=== PATIENT | male | born 1945 | race Caucasian/White ===

== ENCOUNTER 2025-03-24 18:22 | Emergency (ER) | payer MEDICARE, BC, SELFPAY ==
--- OUTSIDE RECORDS SUMMARY | 2025-01-15 09:30 | XMS_ITS ---
Author Organization [facility] in [place] Address [address] [place] [address] Care Team Providers Care Lime Slaker Name Role Phone Shravan Pavon MD Primary Care Provider Unavail able Bob Sajan Unavailable [phone] Results Component Value Reference Range Notes UA (URINALYSIS, COMPLETE) (N ot yet reviewed by provider) Interpretation: Performing Lab: Notes/Report: PSA, TOTAL (Not yet reviewed by provider) Interpretation: Performing Lab: Notes/Report: CYTOLOGY, URINE, RANDOM Reviewed date:02/05/2025 04:05:49 PM Interpretation: Performing Lab: Notes/Report: REASON FOR VISIT Ref Librado--hematuria ([facility]) Medications Medication SIG (Take, Route, Frequency, Duration) Notes Start Date End Date Status Metoprolol Succinate ER 50 MG Oral for 90 Days Active Xarelto 20 MG Oral for 90 Days Active Rosuvastatin Calcium 10 MG Oral for 90 Days Active Multaq 400 MG TAKE 1 TABLET BY GAVI TH TWICE DAILY Oral for 90 Days Active Multaq 400 MG Oral for 90 Days Not-Taking Januvia 100 MG TAKE 1 TABLET BY GAVI TH ONCE DAILY Oral for 90 Days Active Citalopram Hydrobromide 10 MG Oral for 90 Days Active Aspirin 81 Active Social History Tobacco Use: Social History Observation Description Date Details (start date - stop date) Never Smoker NA - NA Tobacco Control (Standard) Question Answer Notes Tobacco use: Nonsmoker AUDIT-C (Standard) Question Answer Notes Did you have a drink containing alcohol in the p ast year? 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 Plan Of Treatment Treatment Notes Assessment Notes Other Check UA micro and cytology Check PSA. Pending Test Test Name Order Date UA (URINALYSIS, COMPLETE) 01/15/2025 PSA, TOTAL 01/15/2025 Next Appt Details Follow Up: 6 Weeks, Reason: PSA and cytology and UA Progress Notes * Juan PINEDADOB: [birth year] (79 yo M)Acc No.[id number]:01/15/2025 Progress Note Patient: Juan RODARTE Provider: Armando Rojas MD :1945 A ge:79 Y S ex:Male Date:01/15/2025 Address:[address] [place], [place] [address] Pcp:Shravan Pavon MD Check In:01:13 PM ESTCheck O ut:02:31 PM EST Subjective: * Chief Complaints: * Ab Pavon--hematuria ([facility]) * HPI: U rology: We see Raad for blood in underwear. CT showed 2mm left kidney stones. Hematuria, Microscopic D id you see blood in your urine? . * ROS: G eneral/Constitutional: Fever d enies. W eight loss d enies. F atigue or Weakness d enies. G enitourinary: Incontinence d enies. F requent urination a dmits. P ainful urination d enies. B lood in Urine d enies. * Active Problem List N20.0 Kidney stone Modified On:01/15/2025W/U Status:confirmed N40.0 BPH (benign prostati c hyperplasia) Modified On:01/15/2025/U Status:confirmed * Medical History: * Surgical History: s kin cancer circumcision * Hospitalization/Major Diagno stic Procedure: * Family History: N o Family History documented.. * Social History: T obacco Use: T obacco Control (Standard) T obacco use: N onsmoker D rug/Alcohol: A DEL-C (Standard) D id you have a drink containing alcohol in the past year? N o P oints 0 I nterpretation N egative D rugs/Alcohol: C affeine I ntake: 1 -2 cups per day * Medications: T akingAspirin 81 Citalopram Hydrobromide 10 MG Tablet Oral Januvia(SITagliptin Phosphate) 100 MG Tablet TAKE 1 TABLET BY MOUTH ONCE DAILY Oral Metoprolol Succinate ER 50 MG Tablet Extended Release 24 Hour Oral Multaq(Dronedarone HCl) 400 MG Tablet TAKE 1 TABLET BY MOUTH TWICE DAILY Oral Rosuvastatin Calcium 10 MG Tablet Oral Xarelto(Rivaroxaban) 20 MG Tablet Oral Taking Aspirin 81 Taking Citalopram Hydrobromide 10 MG Tablet Oral Taking Januvia(SITagliptin Phosphate) 100 MG Tablet TAKE 1 TABLET BY MOUTH ONCE DAILY Oral Taking Metoprolol Succinate ER 50 MG Tablet Extended Release 24 Hour Oral Taking Multaq(Dronedarone HCl) 400 MG Tablet TAKE 1 TABLET BY MOUTH TWICE DAILY Oral Taking Rosuvastatin Calcium 10 MG Tablet Oral Taking Xarelto(Rivaroxaban) 20 MG Tablet Oral Not-Taking/PRNMultaq(Dronedarone HCl) 400 MG Tablet Oral Medication List reviewed and reconciled with the patientNot- Taking/PRN Multaq(Dronedarone HCl) 400 MG Tablet Oral Medication List reviewed and reconciled with the patient * Allergies: n o[Allergies Verified] Objective: * Vitals: W t:208.6lbs, Ht: 72 in, BMI:28.29Index, Ht-cm: 182.88 cm, Wt-k.62 kg. Assessment: * Assessment: 1. B enign essential microscopic hematuria - R31.1 (Primary) 2 . K idney stone - N20.0 3 . B PH (benign prostatic hyperplasia) - N40.0 Plan: * Treatment: 2. B PH (benign prostatic hyperplasia) L AB: PSA, TOTAL (Collection Date & Time - 01/16/2025) 3. O thers Notes: Check UA micro and cytology Check PSA. * Procedure Codes: * Follow Up: 6 Weeks (Reason: PSA and cytology and UA) * * Sign off status: Completed Visit Status: C HK (Check Out) true * Provider: Armando Rojas MD Date: 0 01/15/2025 Generated for Paulina bowman/Rossana/Lisaitting on: 0 03/24/2025 06:40 PM EDT History and Physical Notes * HPI (History of Present Illness) Category Sub-Category Detail Notes Category Not es Urology Hematuria, Microscopic Did you s ee blood in your urine?: .
--- OUTSIDE RECORDS SUMMARY | 2025-03-12 07:20 | XMS_ITS ---
Author Organization [facility] in [place] Address [address] [place] [address] Care Team Providers Care Mounter Clarinets Name Role Phone Librado JOSHUA, Shravan Primary Care Provider Unavail able Sajan Rojas Unavailable [phone] REASON FOR VISIT w/ ua, cytology, psa Encounters Encounter Location Date Provider Diagnosis Urology [facility] [address] [address] 03/12/2025 Sajan Rojas Plan Of Treatment No Information Progress Notes * Juan PINEDADOB: [birth year] (79 yo M)Acc No.[id number]:03/12/2025 UNLOCKED PROGRESS NOTE Patient: Juan RODARTE Provider: Armando Rojas MD :1945 A ge:79 Y S ex:Male Date:03/12/2025 Address:[address] [place] [phone] Pcp:Shravan Pavon MD Subjective: * Chief Complaints: * 1 . W/ ua, cytology, psa. * Medical History: Objective: * Vitals: Assessment: Plan: * Treatment: * * Electronic signature of Kole Rojas MD, [id number] on 03/24/2025 at 06:41 PM EDT Sign off status: Pending Visit Status: C ANC (Cancelled) * Provider: Armando Rojas MD Date: 0 03/12/2025 Generated for Paulina bowman/Rossana/Armand on: 0 03/24/2025 06:41 PM EDT
--- OUTSIDE RECORDS SUMMARY | 2025-03-12 23:59 | XMS_ITS | Continuity of Care Document ---
Author Organization [facility] Address [address] [place] [address]- Encounter 03/12/25 - 03/12/25 [facility] [address] [place] [address] [address] [place] [address]- Encounter Diagnosis Kidney stone(Discharge Diagnosis) - 03/12/25 Hematuria, gross(Discharge Diagnosis) - 03/12/25 Flank pain(Discharge Diagnosis) - 03/12/25 Discharge Disposition: Home Attending Physician: Sajan Rojas MD Encounter Type: Outpatient Clinic Assessment and Plan Extracted from: Title:Office Visit Note Author:Sajan Rojas Date:03/12/[address]. Kidney stone N20.0 CT negative except for 2mm left stone. 2. Hematuria, gross R31.0 UA continues to show a lot of blood Cytology negative PSA 3.5. 3. Flank pain R10.9 Cystoscopy with bilateral retrogrades. MAC. 5 mins. Medications ASPIRIN LOW EC 81MG TAB ASPIRIN LOW EC 81MG TAB, 0 Refill(s) Start Date: 03/12/25 Status: Ordered Repeat number: 1 citalopram 10 mg oral tablet 0 Refill(s) Start Date: 03/12/25 Status: Ordered Repeat number: 1 Januvia 100 mg oral tablet 1 tab(s) ( 100 mg ), Oral, Daily, # 30 tab(s), 0 Refill(s) Start Date: 03/12/25 Status: Ordered Quantity: 30.0 Unit: tab(s) Repeat number: 1 Metoprolol Succinate ER 50 mg oral tablet, extended release 0 Refill(s) Start Date: 03/12/25 Status: Ordered Repeat number: 1 Multaq 400 mg oral tablet 0 Refill(s) Start Date: 03/12/25 Status: Ordered Repeat number: 1 rosuvastatin 10 mg oral tablet 0 Refill(s) Start Date: 03/12/25 Status: Ordered Repeat number: 1 rosuvastatin 10 mg oral tablet 0 Refill(s) Start Date: 03/12/25 Status: Ordered Repeat number: 1 Xarelto 20 mg oral tablet 1 tab(s) ( 20 mg ), Oral, qPM, # 30 tab(s), 0 Refill(s) Start Date: 03/12/25 Status: Ordered Quantity: 30.0 Unit: tab(s) Repeat number: 1 Procedures Procedure Date Related Diagnosis Body Site Status Circumcision Completed Pacemaker care Completed Vital Signs Most recent to oldest [Reference Range]: 1 Weight 94.80 kg (03/12/25 11:40 AM) Weight Measured (lbs) 208.998 lb (03/12/25 11:40 AM) Weight Dosing 94.800 kg (03/12/25 11:40 AM) Social History Social History Type Response Tobacco Former tobacco user Tobacco Use:. Sex Sex Representation Male (finding) Outpatient Note * Sajan Rojas MD: PERFORM Event Display: Office/Clinic Note Authored Date: [id number] AWA ROSE :1945 Age:79 years Sex:MALE Registration Date:03/12/2025 Chief Complaint f/u w UA, Cytology,PSA History of Present Illness We see Raad for blood in the underwear. CT was negitive.?? Physical Exam Vitals & Measurements WT:??94.80??kg?? Assessment/Plan 1.??Kidney stone??N20.0 CT negative except for 2mm left stone.?? 2.??Hematuria, gross??R31.0 UA continues to show a lot of blood Cytology negative PSA 3.5.?? 3.??Flank pain??R10.9 Cystoscopy with bilateral retrogrades. MAC. 5 mins.?? Problem List/Past Medical History Ongoing No qualifying data Historical No qualifying data Procedure/Surgical History ???Circumcision???Pacemaker care Medications ASPIRIN LOW EC 81MG TAB citalopram 10 mg oral tablet Januvia 100 mg oral tablet, 100 mg= 1 tab(s), Oral, Daily Metoprolol Succinate ER 50 mg oral tablet, extended release Multaq 400 mg oral tablet rosuvastatin 10 mg oral tablet rosuvastatin 10 mg oral tablet Xarelto 20 mg oral tablet, 20 mg= 1 tab(s), Oral, qPM Allergies No active allergies Social History Alcohol Use: Never. Electronic Cigarette/Vaping Electronic Cigarette Use: Never. Nutrition/Health Caffeine intake amount: 1 cup. Tobacco Former tobacco user Tobacco Use:. [Electronically Signed on: 03/12/2025 12:04 EDT] Sajan Rojas MD [Verified on: 03/12/2025 12:04 EDT] Sajan Rojas MD Insurance Providers Guarantor name: Health Plan Information #: 1 Payer: BRENDA Payer Identifier: SANG Member Number: [id number] Group Number: [id number] Subscriber Identifier: [id number] Relationship to Subscriber: self Coverage Type: BLUE CROSS/BLUE SHIELD Coverage Verification Date: SANG Telecom: [phone] Address: [facility] [address] [place] [address]
[2025-03-24] VITALS (31 sets, daily range): BP systolic 122–156; BP diastolic 67–81; PULSE 55–63; TEMP 36.6–37; O2SAT 94–97; BMI 29.9
--- OUTSIDE RECORDS SUMMARY | 2025-03-24 18:41 | XMS_ITS | Encounter Summary ---
Author Organization [facility] Address [address] [place] [address] Phone Care Team Providers Care Supervisor Furnace Room Name Role Phone Shravan Pavon MD Primary Care Provider + Encounter Details Date Type Department Care Team (Late st Contact Info) Description 03/21/2025 Telephone [facility] [address] [facility] [address] [place] [address] Fioan Pavon RN Social History Tobacco Use Types Packs/Day Years Used Date Smoking Tobacco: Former Cigarettes Q uit: 1976 Smokeless Tobacco: Never Alcohol Use Standard Drinks/Week Comments Never 0 (1 standard drink = 0.6 oz pur e alcohol) Sex and Gender Information Value Date Recorded Sex Assigned at Not on file Legal Sex Male 7:22 AM EST Gender Identity Not on file Sexual Orientation Not on file documented as of this encounter Miscellaneous Notes * Telephone Encounter - Fiona Pavon RN - 03/21/2025 3:32 PM EDT Patient scheduled for cystoscopy 04-04-[address] Rojas[address] [facility]. Patient notified. Dr Rojas notified. Phone- [phone] Fax- [phone] * Telephone Encounter - Fiona Pavon RN - 03/21/2025 3:30 PM EDT ----- Message from Ish Goldsmith sent at 03/21/2025 12:51 PM EDT ----- Patient can proceed. Okay to hold aspirin and Xarelto as requested ----- Message ----- From: Danielle Wilkerson Sent: 03/21/2025 10:24 AM EDT To: Ish Goldsmith MD documented in this encounter Plan of Treatment Upcoming Encounters Date Type Department Care Team ([facility] st Contact Info) Description 08/20/2025 1:50 PM EST Office Visit [facility] [address] [phone] Ish Goldsmith MD 703 [facility] 2, [address] [address] documented as of this encounter Visit Diagnoses Not on filedocumented in this encounter Additional Health Concerns Assessment Noted Time A fall risk assessment has been complete d for the patient 07/12/2024 1:08 PM EST documented as of this encounter Care Teams Supervisor Furnace Room Relationship Specialty Start Date End Date Shravan Pavon MD [address] [place] [address] PCP - General 09/01/21 documented as of this encounter
--- OUTSIDE RECORDS SUMMARY | 2025-03-24 18:41 | XMS_ITS | Encounter Summary ---
Author Organization [facility] Address [address] [place] [address] Phone Care Team Providers Care Presser Hand Name Role Phone Shravan Pavon MD Primary Care Provider + Encounter Details Date Type Department Care Team (Late st Contact Info) Description 04/26/2023 Scanned Document [facility] [address] [place] [address] Conversion, Onbase Social History Tobacco Use Types Packs/Day Years Used Date Smoking Tobacco: Never Assessed Sex and Gender Information Value Date Recorded Sex Assigned at Not on file Legal Sex Male 7:22 AM EST Gender Identity Not on file Sexual Orientation Not on file documented as of this encounter Plan of Treatment Upcoming Encounters Date Type Department Care Team (Late st Contact Info) Description 08/20/2025 1:50 PM EST Office Visit [facility] [address] [phone] Ish Goldsmith MD 703 [facility] [address], [address] [address] documented as of this encounter Procedures Procedure Name Priority Date/Time Associated Diagnosis Comments OUTSIDE GENERIC TESTING 04/26/2023 documented in this encounter Results * OUTSIDE GENERIC TESTING (04/26/2023) Anatomical Region Laterality Modality Other Narrative 04/26/2023 Ordered by an unspecified provider. us Onbase Conversion OUTSIDE SCAN Final Result documented in this encounter Visit Diagnoses Not on filedocumented in this encounter Care Teams Presser Hand Relationship Specialty Start Date End Date Shravan Pavon MD [address] [place] [id number] PCP - General 09/01/21 documented as of this encounter
--- OUTSIDE RECORDS SUMMARY | 2025-03-24 18:41 | XMS_ITS | Clinical Summary ---
Author Organization [facility] Address [address] [place] [address] Phone Care Team Providers Care Gift Officer Name Role Phone Shravan Pavon MD Primary Care Provider + Allergies Active Allergy Reactions Criticality Noted Date Comments Iodinated Contrast Media Hives 01/11/2025 Medications Multaq 400 mg tablet Take 1 tablet (400 mg) by mouth 2 times a day. Active metoprolol succinate XL (Toprol-XL) 50 mg 24 hr tablet Take 0.5 tablets (25 mg) by mouth once daily. Active Xarelto 20 mg tablet Take 1 tablet (20 mg) by mouth once daily. Active Januvia 100 mg tablet Take 1 tablet (100 mg) by mouth once daily. Active rosuvastatin (Crestor) 10 mg tabletIndications:M ild coronary artery disease,Mixed hyperlipidemia Take 1 tablet (10 mg) by mouth once daily. 90 tablet 3 4 07/12/20 25 Active aspirin 81 mg EC tabletIndications:M ild coronary artery disease Take 1 tablet (81 mg) by mouth 2 times a week. 24 tablet 3 4 07/12/20 25 Active Active Problems Problem Noted Date Diagnosed Date BMI 28.0-28.9,adult 07/12/2024 Anticoagulated 07/12/2024 Pacemaker 07/12/2024 Sleep apnea 07/12/2024 Former smoker 07/12/2024 Shortness of breath 07/12/2024 Persistent atrial fibrillation (Multi) 4 Essential hypertension 06/22/2023 Mixed hyperlipidemia 06/22/2023 Sick sinus syndrome (Multi) 06/22/2023 Complete heart block 06/22/2023 Paroxysmal atrial fibrillation (Multi) 3 Mild coronary artery disease 06/22/2023 Encounters Date Type Department Care Team Description 03/21/[address] [address] Fiona Pavon RN 01/11/2025 9:50 AM EDT Office Visit [address] [address] Ish Goldsmith MD Sick sinus syndrome (Multi) (Primary Dx); Mild coronary artery disease; Persistent atrial fibrillation (Multi); Paroxysmal atrial fibrillation (Multi); Pacemaker; Essential hypertension; Complete heart block; Anticoagulated; BMI 28.0-28.9,adult; Shortness of breath; Former smoker 01/11/2025 Travel 01/08/[address] [facility] [address] [place] [address] Scanning, Generic Provider from Last 3 Months Immunizations Immunization Administration Dates Next Due DTP 07/14/2020 Flu vaccine, quadrivalent, h igh-dose, preservative free, age 65y+ (FLUZONE) 06/16/2023,05/27/2022,06/11/2021 Flu vaccine, quadrivalent, recombinant, preservative free, adult (FLUBLOK) 05/22/2020 Flu vaccine, trivalent, pres ervative free, HIGH-DOSE, age 65y+ (Fluzone) 06/21/2024,07/24/2019,05/25/2018,05/19,06/04/2016,06/05/2015 Influenza Whole 06/26/2007 Influenza, seasonal, injectable 06/22/2019 Pneumococcal conjugate vacci ne, 13-valent (PREVNAR 13) 05/19/2017 Pneumococcal polysaccharide vaccine, 23-valent, age 2 years and older (PNEUMOVAX 23) 05/25/2018,08/22/2017,08/22/2011 Tdap vaccine, age 7 year and older (BOOSTRIX, ADACEL) 07/14/2020 Zoster, live 07/22/2015,07/07/2015 Family History Medical History Relation Name Comments Diabetes Father Heart disease Father Diabetes Mother Heart disease Mother Relation Name Status Comments Father Mother Social History Tobacco Use Types Packs/Day Years Used Date Smoking Tobacco: Former Cigarettes Q uit: 1976 Smokeless Tobacco: Never Tobacco Cessation:Counseling Given: Not Answered Alcohol Use Standard Drinks/Week Comments Never 0 (1 standard drink = 0.6 oz pur e alcohol) Sex and Gender Information Value Date Recorded Sex Assigned at Not on file Legal Sex Male 7:22 AM EST Gender Identity Not on file Sexual Orientation Not on file Last Filed Vital Signs Vital Sign Reading Time Taken Comments Blood Pressure 102/50 01/11/2025 9:41 AM EDT Pulse 60 01/11/2025 9:41 AM EDT Temperature 36.6 C (97.9 F) 01/26/2023 10:06 AM EDT Respiratory Rate - - Oxygen Saturation - - Inhaled Oxygen Concentration - - Weight 94.8 kg (209 lb) 01/11/2025 9:41 AM EDT Height 182.9 cm (6') 01/11/2025 9:41 AM EDT Body Mass Index 28.35 01/11/2025 9:41 AM EDT Plan of Treatment Upcoming Encounters Date Type Department Care Team (Late st Contact Info) Description 08/20/2025 1:50 PM EST Office Visit [facility] [address] [address] Ish Goldsmith MD 703 [facility] 2, [address] [address] Health Maintenance Due Date Last Done Comments Lipid Panel 1945 Diabetes Screening 1961 Zoster Vaccines (2 of 3) 09/16/2015 07/22/2015, 06/22 RSV High Risk: (Elderly (60+) or Population) (1 - 1-dose 75+ series) 2018 COVID-19 Vaccine ( - 2023- season) 2024 Yearly Adult Physical 01/05/2025 01/05/2024 , 12/31/2022, 12/15/2021, Additional history exists Influenza Vaccine (#1) 2025 , 06/16/2023, 05/27/2022, Additional history exists DTaP/Tdap/Td Vaccines (3 - Td or Tdap) 07/14/2030 07/14/2020, 07/14/2020 Pneumococcal Vaccine Completed 05/25/2018, 08/22/2017, 05/19/2017, Additional history exists HIB Vaccines Aged Out No longer eligi ble based on patient's age to complete this topic HPV Vaccines Aged Out No longer eligi ble based on patient's age to complete this topic Hepatitis A Vaccines Aged Out No long er eligible based on patient's age to complete this topic Hepatitis B Vaccines Aged Out No long er eligible based on patient's age to complete this topic IPV Vaccines Aged Out No longer eligi ble based on patient's age to complete this topic Meningococcal Vaccine Aged Out No hannah tamiko eligible based on patient's age to complete this topic Rotavirus Vaccines Aged Out No longer eligible based on patient's age to complete this topic Procedures Procedure Name Priority Date/Time Associated Diagnosis Comments ECG 12-LEAD Routine 01/11/2025 9:50 AM EDT Sick sinus syndrome (Multi) Paroxysmal atrial fibrillation (Multi) from Last 3 Months Results * ECG 12 Lead (01/11/2025 9:50 AM EDT) Narrative CPACS - 01/11/2025 10:15 AM EDT Normal sinus rhythm with AV pacemaker with atrial sensing and ventricular pacing us Ish Goldsmith MD ECG ORDERABLES Final Resu lt CPACS from Last 3 Months Insurance MEDICARE PART A AND B [facility] MEDICARE PART A AND B [facility] Care Teams Gift Officer Relationship Specialty Start Date End Date Shravan Pavon MD [address] [place] [address] PCP - General 09/01/21
--- OUTSIDE RECORDS SUMMARY | 2025-03-24 18:41 | XMS_ITS | Encounter Summary ---
Author Organization [facility] Address [address] [place] [address] Phone Care Team Providers Care Child Care Coordinator Name Role Phone Shravan Pavon MD Primary Care Provider + Encounter Details Date Type Department Care Team (Late Contact Info) Description 01/08/2025 Scanned Document [facility] [address] [place] [phone] Scanning, Generic Provider Social History Tobacco Use Types Packs/Day Years [...] on file Sexual Orientation Not on file COVID-19 Exposure Response Date Recorded In the last 10 days, have yo u been in contact with someone who was confirmed or suspected to have Coronavirus/COVID-19? No / Unsure 01/11/2025 9:31 AM EDT documented as of this encounter Plan of Treatment Upcoming Encounters Date Type Department Care Team (Late st Contact Info) Description 08/20/2025 1:50 PM EST Office Visit [facility] 703 [facility] [address] [place] [address] Ish Goldsmith MD 703 [facility] 2, [address] [place] [address] documented as of this encounter Visit Diagnoses Not on filedocumented in this encounter Additional Health Concerns Assessment Noted Time A fall risk assessment has been complete d for the patient 07/12/2024 1:08 PM EST documented as of this encounter Care Teams Child Care Coordinator Relationship Specialty Start Date End Date Shravan Pavon MD [address] [place] [address] PCP - General 09/01/21 documented as of this encounter
--- OUTSIDE RECORDS SUMMARY | 2025-03-24 18:41 | XMS_ITS | Patient Health Record ---
Author Organization [facility] [place] Address [address] [place] [address] Care Team Providers Care Customer Service Receptionist Name Role Phone Shravan Pavon MD Primary Care Provider Unavail able Kole Rojasley Unavailable [phone] Results Component Value Reference Range Notes UA (URINALYSIS, COMPLETE) (N ot yet reviewed by provider) Interpretation: Performing Lab: Notes/Report: PSA, TOTAL (Not yet reviewed by provider) Interpretation: Performing Lab: Notes/Report: CYTOLOGY, URINE, RANDOM Reviewed date:02/05/2025 04:05:49 PM Interpretation: Performing Lab: Notes/Report: Reason For Referral No Information Medications Medication SIG (Take, Route, Frequency, Duration) Notes Start Date End Date Status Metoprolol Succinate ER 50 MG Oral for 90 Days Active Januvia 100 MG TAKE 1 TABLET BY GAVI TH ONCE DAILY Oral for 90 Days Active Citalopram Hydrobromide 10 MG Oral for 90 Days Active Aspirin 81 Active Xarelto 20 MG Oral for 90 Days Active Rosuvastatin Calcium 10 MG Oral for 90 Days Active Multaq 400 MG TAKE 1 TABLET BY GAVI TH TWICE DAILY Oral for 90 Days Active Multaq 400 MG Oral for 90 Days Not-Taking Social History Tobacco Use: Social History Observation [...] Problem Status W/U Status Risk Notes Problem Benign prostatic hyperplasia (110786364) BPH (benign prostatic hyperplasia) (N40.0) Active confirmed Problem Kidney stone (97067338) Kidney stone (N20.0) Active confirmed Vital Signs Height 72 in 01/15/2025 Weight 208.6 lbs 01/15/2025 BMI 28.29 kg/m2 01/15/2025 Encounters Encounter Location Date Provider Diagnosis [facility] [address] [place] [address] 01/15/2025 Sajan Rojas Benign essential microscopic hematuria [...] and cytology Check PSA. Plan Of Treatment Pending Test Test Name Order Date UA (URINALYSIS, COMPLETE) 01/15/2025 PSA, TOTAL 01/15/2025 Insurance Providers Payer Name Payer Address Payer Phone Subscriber Number Group Number Insured Name Patient Relationship to Insured Coverage Start Date Coverage End Date [place] [address] [place] [address] [id number] Juan Pineda Self - patient is the insured 8 [employer] ACCESS PPO PLUS LOCAL PLAN [address] [place] [address] [id number] Juan Pineda Self - patient is the insured Medical (General) History Surgical History Surgery Date(Month/Year) skin cancer circumcision
--- OUTSIDE RECORDS SUMMARY | 2025-03-24 18:41 | XMS_ITS | Encounter Summary ---
Author Organization [facility] Address [address] [place] [address] Phone Care Team Providers Care Gusset Stitcher Name Role Phone Shravan Pavon MD Primary Care Provider + Encounter Details Date Type Department Care Team (Late st Contact Info) Description 12/21/2022 Orders Only [facility] [address] [place] [address] Conversion, Onbase Social History Tobacco Use Types [...] Description 08/20/2025 1:50 PM EST Office Visit [facility] [address] [phone] Ish Goldsmith MD 703 [facility] 2, [address] [address] Scheduled Orders Name Type Priority Associated Diagnoses Orde r Schedule OUTSIDE LAB SCAN Lab Ordered: 12/21/2022 documented as of this encounter Visit Diagnoses Not on filedocumented in this encounter Care Teams Gusset Stitcher Relationship Specialty Start Date End Date Shravan Pavon MD [address] [place] [phone] PCP - General 09/01/21 documented as of this encounter
--- OUTSIDE RECORDS SUMMARY | 2025-03-24 18:41 | XMS_ITS | Encounter Summary ---
Author Organization [facility] Address [address] [place] [address] Phone Care Team Providers Care Pharmacy District Manager Name Role Phone Shravan Pavon MD Primary Care Provider + Encounter Details Date Type Department Care Team (Late st Contact Info) Description 12/20/2022 Orders Only [facility] [address] [place] [address] Conversion, Onbase Social History Tobacco Use Types [...] 1:50 PM EST Office Visit [facility] [address] [phone] Ish Goldsmith MD 703 [facility] 2, [address] [phone] Scheduled Orders Name Type Priority Associated Diagnoses Orde r Schedule OUTSIDE LAB SCAN Lab Ordered: 12/20/2022 OUTSIDE LAB SCAN Lab Ordered: 12/20/2022 documented as of this encounter Visit Diagnoses Not on filedocumented in this encounter Care Teams Pharmacy District Manager Relationship Specialty Start Date End Date Shravan Pavon MD [address] [place] [address] PCP - General 09/01/21 documented as of this encounter
--- OUTSIDE RECORDS SUMMARY | 2025-03-24 18:41 | XMS_ITS | Encounter Summary ---
Author Organization [facility] Address [address] [place] [address] Phone Care Team Providers Care Store Operations Associate Name Role Phone Shravan Pavon MD Primary Care Provider + Encounter Details Date Type Department Care Team (Late st Contact Info) Description 12/27/2023 Scanned Document [facility] [address] [place] [phone] Scanning, Generic Provider Social History Tobacco Use Types Packs/Day Years Used Date Smoking Tobacco: Former Cigarettes Q uit: 1976 Smokeless Tobacco: Never Alcohol Use Standard Drinks/Week Comments Not Currently 0 (1 standard drink = 0.6 oz [...] Description 08/20/2025 1:50 PM EST Office Visit [facility] [address] [phone] Ish Goldsmith MD [address] [facility] 2, [address] [place], [place] [phone] documented as of this encounter Visit Diagnoses Not on filedocumented in this encounter Additional Health Concerns Assessment Noted Time A fall risk assessment has been complete d for the patient 06/22/2023 2:52 PM EDT documented as of this encounter Care Teams Store Operations Associate Relationship Specialty Start Date End Date Shravan Pavon MD [address] [place] [address] PCP - General 09/01/21 documented as of this encounter
--- NOTE | 2025-03-24 18:46 | ECG_ITS ---
[facility] Test Date: 2025-03-24 Pat Name: AWA ROSE Department: Room: - Gender: Male Manufacturing Machine Operator: : 1945 Requested By: [id number] Order Number: [id number] Reading MD: DK BORJAS M.D. Measurements Intervals [place] Rate: 60 P: -30 NC: 198 QRS: -60 QRSD: 166 T: 131 QT: 466 QTc: 466 Interpretive Statements [id number] Electronic atrial pacemaker [id number] Electronic ventricular pacemaker Abnormal ECG No previous ECG available for comparison Electronically Signed On 03-24-2025 18:55:19 EDT by DK BORJAS M.D.
--- NOTE | 2025-03-24 18:49 | ED_ITS ---
HPI HPI - General Adult General Chief complaint: Dizziness Stated complaint: WEAKNESS Time Seen by Provider: 03/24/25 18:42 Source: patient Mode of arrival: walk-in Limitations: no limitations History of Present Illness HPI narrative: 79-year-old male to the emergency department with chief complaint of dizziness. Patient reports he woke up this morning and had vertigo. Room spinning sen sation continued throughout the day. He feels nauseous. He has not been able to eat due to the nausea. Whenever he tries to get up and move about he feels dizzy. He denies any vision changes, numbness, weakness, tingling, difficulty speaking. He has never had vertigo before. He was otherwise at his baseline health. Related Data Allergies Allergy/AdvReac Type Severity Reaction Status Date / Time No Known Drug Allergies Allergy Verified 03/24/25 18:33 Review of Systems ROS Status of ROS 10 or more systems reviewed and unremark able except as noted in history and below PFSH PFSH Social History Little interest or pleasure in doing things: not at all Feeling down, depressed, or hopeless: not at all Exam Narrative Exam Narrative: VITALS: I have reviewed the triage vital signs. GENERAL: Well developed, well appearing adult in no acute distress. NEURO: Alert and oriented x4. Moves all extremities. Face is symmetric and expressive. Cranial nerves II through XII grossly intact as tested. Muscular strength and sensation grossly intact upper and lower extremities bilaterally. No dysarthria. No aphasia. No ataxia. Normal gait. NIHSS 0. EYES: PERRL. No scleral icterus or conjunctival injection. No discharge. HENT: Normocephalic, atraumatic. Hearing is grossly intact. Nares grossly patent and without discharge. Mucous membranes moist. NECK: No JVD. Patient moves neck without restriction. CARDIO: Rhythm regular. Normal rate. No murmur, rub, or gallop. Pulses equal bilaterally in the upper and lower extremity. No lower extremity edema. PULM: Lungs clear to auscultation in all batres. No wheezes, rales, or rhonchi. No conversational dyspnea. No splinting, stridor, or accessory muscle use. GI/: Abdomen is soft and non-tender. Normoactive bowel sounds. EXTREMITIES: Symmetric muscle bulk. No joint swelling. No clubbing, cyanosis, or deformity. SKIN: Warm and dry. Normal turgor. No rash or lesions appreciated. PSYCH: Mood, affect, and interaction is appropriate to the setting. Constitutional Vital Signs, click to edit/add: Last Vital Signs Temp 97.9 F 03/24/25 18:34 Pulse 60 03/24/25 18:34 Resp 18 03/24/25 18:34 BP 149/81 H 03/24/25 18:34 Pulse Ox 94 L 03/24/25 18:34 O2 Del Method Room Air 03/24/25 18:34 Course Vital Signs Vital signs: Vital Signs Temperature 97.9 F 03/24/25 18:34 Pulse Rate 60 03/24/25 18:34 Respiratory Rate 18 03/24/25 18:34 Blood Pressure 149/81 H 03/24/25 18:34 Pulse Oximetry 94 L 03/24/25 18:34 Oxygen Delivery Method Room Air 03/24/25 18:34 Temperature 97.9 F 03/24/25 18:34 Pulse Rate 60 03/24/25 18:34 Respiratory Rate 18 03/24/25 18:34 Blood Pressure 149/81 H 03/24/25 18:34 Pulse Oximetry 94 L 03/24/25 18:34 Oxygen Delivery Method Room Air 03/24/25 18:34 Medical Decision Making MDM Narrative Medical decision making narrative: 79-year-old male to the emergency department chief complaint of vertigo. Symptoms began this morning when he woke up. Vital stable, the patient is afebrile. He has no focal neurologic deficits on exam. Basic labs, CT scan of his head are ordered. Meclizine and Zofran for symptom control. Working diagnosis: Vertigo Care was signed out to Dr. Dsouza. Medical Records Medical records reviewed: Yes I reviewed the patient's medical records Discharge Plan Discharge Patient Disposition: Still a Patient
[2025-03-24 19:08] LABS: Hematocrit 37.2 % (42.0-54.0); Hemoglobin 12.7 g/dL (14.0-18.0); Immature Granulocytes Abs Auto 0.02 10^3/uL (0.00-0.03); Immature Granulocytes Pct Auto 0.3 % (0.0-0.5); Lymphocytes Absolute Auto 1.6 10^3/uL (1.2-3.8); Mean Corpuscular HGB Conc 34.1 g/dL (29.9-35.2); Mean Corpuscular Hemoglobin 30.1 pg (25.9-34.0); Mean Corpuscular Volume 88.2 fL (80.0-94.0); Platelet Count 275 10^3/uL (150-450); Red Blood Count 4.22 10^6/uL (4.70-6.10); White Blood Count 6.4 10^3/uL (4.0-11.0)
[2025-03-24] MEDS: MECLIZINE HCL 12.5 MG TABLET 25 MG PO (19:25)
[2025-03-24 19:28] LABS: Anion Gap 9.3; Blood Urea Nitrogen 17.0 mg/dL (7.0-18.0); Calcium 9.1 mg/dL (8.5-10.1); Carbon Dioxide 28.8 mmol/L (21.0-32.0); Chloride 101 mmol/L (98-107); Estimated GFR (African America 56 (>=60 mL/min/1.73m^2); Estimated GFR (Non-African Ame 46 (>=60 mL/min/1.73m^2); Glucose 139 mg/dL (74-106); Potassium 4.1 mmol/L (3.5-5.1); Sodium 135 mmol/L (136-145)
[2025-03-24 21:35] LABS: Glucose Urine UA NEGATIVE (NEGATIVE)
[2025-03-24 21:42] LABS: Crystals Seen? None Seen #/HPF (None Seen)
[2025-03-24 21:43] LABS: Cast Seen? SEEN #/LPF (NONE SEEN); Urine Culture Indicated NO
--- NOTE | 2025-03-24 21:53 | ED.GENADUL1 ---
HPI HPI - General Adult General Chief complaint: Dizziness Stated complaint: WEAKNESS Time Seen by Provider: 03/24/25 18:42 Source: patient Mode of arrival: walk-in Limitations: no limitations History of Present Illness HPI narrative: 79-year-old male presented to the emergency department nd was initially seen by Dr. Ward and signed out to me after discussing the case with him thoroughly. Please see his full history and physical exam. Related Data Home Medications ?Medication ?Instructions ?Recorded ?Confirmed citalopram 10 mg tablet 10 mg PO DAILY 03/24/25 03/24/25 metoprolol succinate 50 mg 25 mg PO DAILY 03/24/25 03/24/25 tablet,extended release 24 hr rivaroxaban 20 mg tablet (Xarelto) 20 mg PO Q24H 03/24/25 03/24/25 rosuvastatin 10 mg tablet 10 mg PO DAILY 03/24/25 03/24/25 sitagliptin phosphate 100 mg 100 mg PO DAILY 03/24/25 03/24/25 tablet (Januvia) Previous Rx's ?Medication ?Instructions ?Recorded meclizine 25 mg tablet 25 mg PO TID PRN dizziness #20 tabs 03/24/25 Allergies Allergy/AdvReac Type Severity Reaction Status Date / Time No Known Drug Allergies Allergy Verified 03/24/25 18:33 PFSH PFSH Social History Little interest or pleasure in doing things: not at all Feeling down, depressed, or hopeless: not at all Exam Constitutional Vital Signs, click to edit/add: Last Vital Signs Temp 98.6 F 03/24/25 19:13 Pulse 62 03/24/25 20:30 Resp 14 03/24/25 20:30 BP 136/72 03/24/25 20:30 Pulse Ox 94 L 03/24/25 20:30 O2 Del Method Room Air 03/24/25 18:34 Course Vital Signs Vital signs: Vital Signs Temperature 97.9 F 03/24/25 18:34 Pulse Rate 60 03/24/25 18:34 Respiratory Rate 18 03/24/25 18:34 Blood Pressure 149/81 H 03/24/25 18:34 Pulse Oximetry 94 L 03/24/25 18:34 Oxygen Delivery Method Room Air 03/24/25 18:34 Temperature 98.6 F 03/24/25 19:13 Pulse Rate 62 08/03/25 20:30 Respiratory Rate 14 03/24/25 20:30 Blood Pressure 136/72 03/24/25 20:30 Pulse Oximetry 94 L 03/24/25 20:30 Oxygen Delivery Method Room Air 03/24/25 18:34 Medical Decision Making MDM Narrative Medical decision making narrative: CT brain on my interpretation shows no acute findings. He is feeling improved after being given Antivert and is discharged home on Antivert. Treatment diagnosis and follow-up were discussed with the patient. Differential Diagnosis Differential Diagnosis: Vertigo, labyrinthitis, intracranial mass, intracranial hemorrhage Lab Data Lab results reviewed: Yes I reviewed the patient's lab results Labs: Lab Results 03/24/25 03/24/25 Range/Units 18:40 21:28 WBC 6.4 (4.0-11.0) 10^3/uL RBC 4.22 L (4.70-6.10) 10^6/uL Hgb 12.7 L (14.0-18.0) g/dL Hct 37.2 L (42.0-54.0) % MCV 88.2 (80.0-94.0) fL MCH 30.1 (25.9-34.0) pg MCHC 34.1 (29.9-35.2) g/dL RDW 12.6 (11.0-15.0) % Plt Count 275 (150-450) 10^3/uL MPV 9.7 (9.5-13.5) fL Neut % (Auto) 63.1 (43.0-75.0) % Lymph % (Auto) 24.5 (20.5-60.0) % Hitchcock % (Auto) 10.0 (1.7-12.0) % Eos % (Auto) 1.6 (0.9-7.0) % Baso % (Auto) 0.5 (0.2-2.0) % Neut # (Auto) 4.1 (1.4-6.5) 10^3/uL Lymph # (Auto) 1.6 (1.2-3.8) 10^3/uL Hitchcock # (Auto) 0.6 (0.3-0.8) 10^3/uL Eos # (Auto) 0.1 (0.0-0.7) 10^3/uL Baso # (Auto) 0.0 (0.0-0.1) 10^3/uL Abs Immat Gran (auto) 0.02 (0.00-0.03) 10^3/uL Imm/Tot Granulo (auto) 0.3 (0.0-0.5) % Sodium 135 L (136-145) mmol/L Potassium 4.1 (3.5-5.1) mmol/L Chloride 101 (98-107) mmol/L Carbon Dioxide 28.8 (21.0-32.0) mmol/L Anion Gap 9.3 BUN 17.0 (7.0-18.0) mg/dL Creatinine 1.46 H (0.70-1.30) mg/dL Est GFR ( Amer) 56 L (>=60 mL/min/1.73m^2) Est GFR (Non-Af Amer) 46 L (>=60 mL/min/1.73m^2) BUN/Creatinine Ratio 11.6 Glucose 139 H (74-106) mg/dL Calcium 9.1 (8.5-10.1) mg/dL Troponin I High Sens 20.0 (4.0-76.1) pg/mL Urine Color Yellow (YELLOW) Urine Clarity Turbid A (CLEAR) Urine pH 6.5 (5.0-9.0) Ur Specific [place] 1.020 (1.005-1.025) Urine Protein Negative (NEG/TRACE) mg/dL Urine Glucose (UA) Negative (NEGATIVE) mg/dL Urine Ketones 15 A (NEGATIVE) mg/dL Urine Occult Blood Negative (NEGATIVE) Urine Nitrite Negative (NEGATIVE) Urine Bilirubin Negative (NEGATIVE) Urine Urobilinogen 1.0 (0.2-1.0) EU/dL Ur Leukocyte Esterase Negative (NEGATIVE) Urine RBC 0-2 (0-2) #/HPF Urine WBC 2-5 A (NONE SEEN) #/HPF Ur Squamous Epith Cells None seen (NONE/RARE) #/LPF Urine Crystals None seen (None Seen) #/HPF Urine Bacteria Trace A (NONE SEEN) #/HPF Urine Casts Seen A (NONE SEEN) #/LPF Hyaline Casts Rare Urine Mucus None seen (NONE SEEN) Ur Culture Indicated? No ECG Data Attestation: I personally reviewed and interpreted this ECG as follows: (EKG on my interpretation shows paced rhythm, rate 60) Discharge Plan Discharge Chief Complaint: Dizziness Clinical Impression: Vertigo Patient Disposition: Home, Self-Care Time of Disposition Decision: 21:51 Condition: Good Mode of Transportation: Private Vehicle Prescriptions / Home Meds: New meclizine 25 mg tablet 25 mg PO TID PRN (Reason: dizziness) Qty: 20 0RF No Action citalopram 10 mg tablet 10 mg PO DAILY metoprolol succinate 50 mg tablet extended release 24 hr 25 mg PO DAILY Xarelto 20 mg tablet 20 mg PO Q24H rosuvastatin 10 mg tablet 10 mg PO DAILY Januvia 100 mg tablet 100 mg PO DAILY Print Language: Belarusian Instructions: Dizziness (ED) Referrals: [facility] [Primary Care Provider, Family Practice] - 1 week
--- NOTE | 2025-03-24 22:28 | PC.NURSE ---
i gave this patient verbal and written discharge orders along with 1 e-script and this patient and his voices yes to understanding these discharge orders and e-script. at time of discharge this patient nor his voices no concerns, needs and shows no signs of distress
== END 2025-03-24 22:27 | disposition home or self-care (01) ==
PROVIDERS: Student in an Organized Health Care Education/Training Program; Emergency Provider Emergency Medicine; PCP Family Medicine
DX: R42 Dizziness and giddiness (principal)
CPT/HCPCS: 36415; 70450; 80048; 81001; 84484; 85025; 93005; 96374; 99285; J2405